=== PATIENT | female | born 1955 | race Caucasian/White ===

== ENCOUNTER 2018-08-27 22:03 | Emergency (ER) | payer OTHER ==
--- NOTE | 2018-08-27 22:10 | EDPHY ---
H & P Time Seen by Provider: 08/27/18 22:10 HPI/ROS: HPI CHIEF COMPLAINT: Dysuria. HISTORY OF PRESENT ILLNESS: 63-year-old female, presents emergency room with dysuria, urinary frequency since earlier today. No back pain, no fever, no vomiting no significant abdominal pain. States she thinks she has urinary tract infection. Past Medical History: Denies significant medical history Past Surgical History: Denies significant surgical history Social History: Denies drugs alcohol tobacco. Family History: Noncontributory ROS REVIEW OF SYSTEMS: 10 Systems were reviewed and negative with the exception of the elements mentioned in the history of present illness. Exam Constitutional appears well nontoxic triage nursing summary reviewed, vital signs reviewed, awake/alert. Vital signs stable at triage Eyes normal conjunctivae and sclera, EOMI, PERRLA. HENT normal inspection, atraumatic, moist mucus membranes, no epistaxis, neck supple/ no meningismus, no raccoon eyes. Respiratory clear to auscultation bilaterally, normal breath sounds, no respiratory distress, no wheezing. Cardiovascular rate normal, regular rhythm, no murmur, no edema, distal pulses normal. Gastrointestinal soft, non-tender, no rebound, no guarding, normal bowel sounds, no distension, no pulsatile mass. Genitourinary no CVA tenderness. Musculoskeletal no midline vertebral tenderness, full range of motion, no calf swelling, no tenderness of extremities, no meningismus, good pulses, neurovascularly intact. Skin pink, warm, & dry, no rash, skin atraumatic. Neurologic awake, alert and oriented x 3, AAOx3, moves all 4 extremities equally, motor intact, sensory intact, CN II-XII intact, normal cerebellar, normal vision, normal speech. Psychiatric normal mood/affect. Heme/Lymph/Immune no lymphadenopathy. Differential Diagnosis: Includes but is not limited to in a particular order UTI, cystitis, bilateral Medical Decision Making: Plan for this patient check UA. Re-evaluation: Urinalysis reviewed shows UTI. Plan for Keflex here 1st dose given in emergency room Keflex take-home pack. Pyridium. Return precautions discussed with patient return emergency room if worsening abdominal pain, fever, vomiting Source: Patient Constitutional: Initial Vital Signs Temperature (C) 36.4 C 08/27/18 22:20 Heart Rate 79 08/27/18 22:20 Respiratory Rate 16 08/27/18 22:20 Blood Pressure 114/64 08/27/18 22:20 O2 Sat (%) 99 08/27/18 22:20 Allergies/Adverse Reactions: omeprazole [From Prilosec] Allergy (Verified 08/27/18 22:22) Home Medications: Medication Instructions Recorded Cephalexin [Keflex] 500 mg PO Q6H #28 cap 08/27/18 Phenazopyridine HCl [Pyridium] 200 mg PO TID #15 tab 08/27/18 Medical Decision Making - Data Points Laboratory Results: 08/27/18 22:21 Urine Color PALE YELLOW Urine Appearance HAZY Urine pH 6.0 (5.0-7.5) Ur Specific Artemas 1.002 (1.002-1.030) Urine Protein NEGATIVE (NEGATIVE) Urine Ketones NEGATIVE (NEGATIVE) Urine Blood 3+ H (NEGATIVE) Urine Nitrate NEGATIVE (NEGATIVE) Urine Bilirubin NEGATIVE (NEGATIVE) Urine Urobilinogen NEGATIVE EU EU (0.2-1.0) Ur Leukocyte Esterase 3+ H (NEGATIVE) Urine RBC 3-5 /hpf H /hpf (0-3) Urine WBC 50-182 /hpf H /hpf (0-3) Ur Epithelial Cells TRACE /lpf /lpf (NONE-1+) Urine Bacteria 1+ /hpf H /hpf (NONE SEEN) Urine Mucus TRACE /lpf /lpf (NONE-1+) Urine Glucose NEGATIVE (NEGATIVE) Departure - Departure Disposition: Home, Routine, Self-Care Clinical Impression: Urinary tract infection Condition: Good Instructions: Urinary Tract Infection in Women (ED) Additional Instructions: 1. Drink lots of fluids stay well-hydrated 2. Antibiotics as prescribed Referrals: NONE *PRIMARY CARE P,. [Primary Care Provider] - As per Instructions Prescriptions: Cephalexin [Keflex] 500 mg PO Q6H #28 cap Phenazopyridine HCl [Pyridium] 200 mg PO TID #15 tab
[2018-08-27] MEDS ORDERED: CEPHALEXIN 500 MG CAP PO ONE (22:47)
[2018-08-27] MEDS ORDERED: CEPHALEXIN 500MG PREPACK#4 BTL TAKEHOME ONE (22:47)
[2018-08-27] MEDS ORDERED: PHENAZOPYRIDINE HCL 200 MG TAB PO ONE (22:47)
[2018-08-27 23:19] VITALS: BP 112/65
== END 2018-08-27 23:27 | disposition home or self-care (01) ==
DX: N39.0 Urinary tract infection, site not specified (principal)